=== PATIENT | female | born 1970 | race Caucasian/White ===

== ENCOUNTER 2017-02-18 18:20 | Emergency (ER) | payer SELFPAY ==
[~2017-02-18] VITALS: Ht 160 cm; Wt 72.6 kg
[2017-02-18 19:42] VITALS: BP 140/85
--- NOTE | 2017-02-18 20:17 | NUR ---
TO ER BED 7
--- NOTE | 2017-02-18 20:33 | NUR ---
46Y/F PATIENT PRESENTS TO ED WITH C/O N/V X 1 DAY . PT STATES ATE CHICKEN AND TEA YESTERDAY, THEN STARTED VOMITTING WITH ABDOMINAL PAIN, DENIES FEVER AND DIARRHEA . NO MEDICAL HX. ; SKIN IS PINK/WARM/DRY; AAOX4 WITH EVEN AND STEADY GAIT; LUNGS CLEAR BL; HR EVEN AND REGULAR; PT DENIES ANY FEVER, CP, SOB, OR COUGH AT THIS TIME; PATIENT STATES PAIN OF 8/10 AT THIS TIME; VSS; PATIENT POSITIONED FOR COMFORT; HOB ELEVATED; BEDRAILS UP X2; BED DOWN. ER MD MADE AWARE OF PT STATUS.
--- NOTE | 2017-02-18 20:45 | NUR ---
Patient being evaluated by physician at bedside.
[2017-02-18] MEDS ORDERED: ONDANSETRON 4 MG TAB PO ONE (20:50)
--- NOTE | 2017-02-18 21:35 | NUR ---
Patient discharged with v/s stable. Written and verbal after care instructions given and explained. Patient alert, oriented and verbalized understanding of instructions. Ambulatory with steady gait. All questions addressed prior to discharge. ID band removed. Patient advised to follow up with PMD. Rx of ZOFRAN 8 MG given. Patient educated on indication of medication including possible reaction and side effects. Opportunity to ask questions provided and answered.
[2017-02-18 21:43] VITALS: BP 140/85
== END 2017-02-18 21:35 | disposition home or self-care (01) ==
LOC: MED 18:20
DX: A08.4 Viral intestinal infection, unspecified (principal)
CPT/HCPCS: 99283; Q0162

== ENCOUNTER 2021-06-20 23:55 | Emergency (ER) | payer MEDICAID ==
[~2021-06-20] VITALS: Ht 160 cm; Wt 77.1 kg
[2021-06-21 00:15] VITALS: BP 102/70
--- NOTE | 2021-06-21 00:15 | NUR ---
TO BED AMBULATORY
--- NOTE | 2021-06-21 00:37 | NUR ---
PT BIB SELF FOR C/O 09/08 LUQ AND LLQ PAIN THAT RADIATES TO LEFT FLANK X 2 DAYS. TENDERNESS NOTED UPON PALPATION. DENIES S/SX OF UTI. PT REPORTS "IT HURTS WHEN I BREATHE TOO." LMP 06/03. LAST BM 06/20. DENIES VAGINAL OR URINARY BLEEDING. DENIES N/V/D, FEVER, CHILLS, CP OR SOB. MED HX: DENIES ALLERGIES: NKA
--- NOTE | 2021-06-21 00:40 | NUR ---
ERMD AT BEDSIDE.
[2021-06-21] MEDS ORDERED: MORPHINE SULFATE 2 MG/ML SYR IVP ONE (00:45)
[2021-06-21] MEDS ORDERED: ONDANSETRON 4 MG/2 ML VIAL IVP ONE (00:45)
[2021-06-21] MEDS ORDERED: NACL 0.9% 1,000 ML IV SCH (00:45)
--- NOTE | 2021-06-21 00:50 | NUR ---
PER ERMD, URINE PREG IN ER, NO LAB REQUIRED.
[2021-06-21 01:13] LABS: BASOPHILS % (AUTO) 0.2 % (0.0-2.0); EOSINOPHILS % (AUTO) 0.1 % (0.0-4.0); HEMATOCRIT 40.4 % (36-48); HEMOGLOBIN 13.9 g/dL (12.0-16.0); LYMPHOCYTES # (AUTO) 1.9 K/uL (2.5-16.5); MEAN CORPUSCULAR HEMOGLOBIN 34 pg (27-31); MEAN CORPUSCULAR HGB CONC 34 g/dL (33-37); MEAN CORPUSCULAR VOLUME 97.9 fL (80-94); MONOCYTES # (AUTO) 1.1 K/uL (0.8-1.0); MONOCYTES % (AUTO) 8.1 % (1.7-9.3); NEUTROPHILS # (AUTO) 10.5 K/uL (1.8-7.7); NEUTROPHILS % (AUTO) 77.6 % (42.2-75.2); PLATELET COUNT (AUTO) 255 K/uL (140-450); RED BLOOD CELL COUNT(AUTO) 4.13 MIL/uL (4.20-5.40); RED CELL DISTRIBUTION WIDTH 12.7 % (11.6-13.7); WHITE BLOOD COUNT (AUTO) 13.5 K/uL (4.8-10.8)
[2021-06-21 01:14] LABS: APPEARANCE,URINE CLEAR (CLEAR); BILIRUBIN,URINE NEGATIVE (NEGATIVE); BLOOD, URINE 2+ (NEGATIVE); COLOR,URINE YELLOW (YELLOW); LEUKOCYTE ESTERASE ,URINE NEGATIVE (NEGATIVE); NITRITE, URINE NEGATIVE (NEGATIVE); UGLUCOSE NEGATIVE (NEGATIVE)
[2021-06-21 01:21] LABS: RBC,URINE 0-5 /HPF (0-5); WBC,URINE 0-5 /HPF (0-5)
--- NOTE | 2021-06-21 01:21 | NUR ---
Patient appears to be resting comfortably in bed WITH EYES CLOSED. Vital Signs within normal limits. Respirations even and unlabored. PT REPORTS "THE PAIN WENT AWAY."
--- NOTE | 2021-06-21 01:28 | NUR ---
PT TAKEN TO CT VIA W.C.
[2021-06-21 01:30] LABS: ALBUMIN 4.2 g/dL (3.4-5.0); ANION GAP 13.1 (8-16); CARBON DIOXIDE 22.7 mmol/L (21-32); CREATININE 0.9 mg/dL (0.6-1.3); POTASSIUM 3.8 mmol/L (3.5-5.1); TOTAL BILIRUBIN 2.5 mg/dL (0.0-1.0)
[2021-06-21] MEDS ORDERED: NACL 0.9% 1,000 ML IV ONE ×2 (02:05)
[2021-06-21] MEDS ORDERED: cefTRIAXone 1,000 MG VIAL ONE (02:10)
--- NOTE | 2021-06-21 02:15 | NUR ---
LAB AT BEDSIDE.
[2021-06-21] MEDS ORDERED: KETOROLAC 30 MG/ML VIAL IVP ONE (02:40)
--- NOTE | 2021-06-21 03:05 | NUR ---
PT AMBULATED TO RESTROOM AND BACK TO BED WITH STEADY GAIT.
--- NOTE | 2021-06-21 03:47 | NUR ---
ERMD AT BEDSIDE.
--- NOTE | 2021-06-21 03:59 | NUR ---
ERMD VERBAL ORDER RECEIVED FOR PO CHALLENGE. ORDER PLACED.
[2021-06-21] MEDS ORDERED: ONDA-24 SL (04:05)
[2021-06-21] MEDS ORDERED: AMOX-1000 PO (04:05)
[2021-06-21] MEDS ORDERED: HYDR-5080 PO (04:05)
[2021-06-21] MEDS ORDERED: MORPHINE SULFATE 4 MG/ML SYR IVP ONE (04:10)
[2021-06-21] MEDS ORDERED: AMOXIL/CLAVULANATE 875/125 MG 1 TAB PO ONE (04:10)
--- NOTE | 2021-06-21 04:10 | NUR ---
PT TOLERATED FLUIDS WELL WITHOUT N/V OR ABDOMINAL DISCOMFORT. ERMD MADE AWARE.
[2021-06-21 04:29] VITALS: BP 106/58
--- NOTE | 2021-06-21 04:29 | NUR ---
Patient discharged with v/s stable. Written and verbal after care instructions given and explained. Patient alert, oriented and verbalized understanding of instructions. Ambulatory with steady gait. All questions addressed prior to discharge. ID band removed. Patient advised to follow up with PMD. Rx of AUGMENTIN, NORCO AND ZOFRAN ODT given. Patient educated on indication of medication including possible reaction and side effects. Opportunity to ask questions provided and answered.
== END 2021-06-21 04:29 | disposition home or self-care (01) ==
LOC: MED 23:55
DX: R65.20 Severe sepsis without septic shock (principal); K57.92 Diverticulitis of intestine, part unspecified, without perforation or abscess without bleeding; N39.0 Urinary tract infection, site not specified; K80.20 Calculus of gallbladder without cholecystitis without obstruction
CPT/HCPCS: 36415; 74176; 80053; 81001; 81025; 83605; 85025; 87040; 87086; 96361; 96365; 96375; 96376; 99291; J0696; J1885; J2270; J2405; J7030

== ENCOUNTER 2022-12-15 19:59 | Inpatient (IN) | payer MEDICAID ==
[~2022-12-15] VITALS: Ht 157.5 cm; Wt 65.8 kg
[~2022-12-15 19:59] MED LIST: AMOX-1000 PO; HYDR-5080 PO; ONDA-188 SL
[2022-12-15 20:11] VITALS: BP 129/63
[2022-12-15] MEDS ORDERED: MORPHINE SULFATE 4 MG/ML SYR IVP ONE ×2 (21:00→23:20)
[2022-12-15] MEDS ORDERED: ONDANSETRON 4 MG/2 ML VIAL IVP ONE (21:00)
[2022-12-15] MEDS ORDERED: NACL 0.9% 1,000 ML IV SCH (21:00)
[2022-12-15 21:13] LABS: BASOPHILS % (AUTO) 0.5 % (0.0-2.0); EOSINOPHILS # (AUTO) 0.2 K/uL (0-0.4); EOSINOPHILS % (AUTO) 2.4 % (0.0-4.0); HEMATOCRIT 38.7 % (36-48); HEMOGLOBIN 13.5 g/dL (12.0-16.0); LYMPHOCYTES # (AUTO) 2.4 K/uL (2.5-16.5); LYMPHOCYTES % (AUTO) 27.1 % (20.5-51.1); MEAN CORPUSCULAR HEMOGLOBIN 33 pg (27-31); MEAN CORPUSCULAR HGB CONC 35 g/dL (33-37); MEAN CORPUSCULAR VOLUME 92.9 fL (80-94); MONOCYTES # (AUTO) 0.8 K/uL (0.8-1.0); MONOCYTES % (AUTO) 9.1 % (1.7-9.3); NEUTROPHILS # (AUTO) 5.3 K/uL (1.8-7.7); NEUTROPHILS % (AUTO) 60.9 % (42.2-75.2); PLATELET COUNT (AUTO) 375 K/uL (140-450); RED BLOOD CELL COUNT(AUTO) 4.16 MIL/uL (4.20-5.40); RED CELL DISTRIBUTION WIDTH 13.1 % (11.6-13.7); WHITE BLOOD COUNT (AUTO) 8.8 K/uL (4.8-10.8)
[2022-12-15 21:30] LABS: ALBUMIN 3.6 g/dL (3.4-5.0); ANION GAP 12.7 (8-16); CARBON DIOXIDE 28.8 mmol/L (21-32); CREATININE 0.9 mg/dL (0.6-1.3); POTASSIUM 3.5 mmol/L (3.5-5.1); TOTAL BILIRUBIN 0.8 mg/dL (0.0-1.0)
[2022-12-15 21:54] LABS: APPEARANCE,URINE CLEAR (CLEAR); BILIRUBIN,URINE NEGATIVE (NEGATIVE); BLOOD, URINE 1+ (NEGATIVE); COLOR,URINE YELLOW (YELLOW); LEUKOCYTE ESTERASE ,URINE NEGATIVE (NEGATIVE); NITRITE, URINE NEGATIVE (NEGATIVE); UGLUCOSE NEGATIVE (NEGATIVE)
[2022-12-15 22:04] LABS: WBC,URINE 0-5 /HPF (0-5)
[2022-12-15 22:05] LABS: OTHER CASTS, URINE None Seen /LPF (None Seen)
[2022-12-15] MEDS ORDERED: metroNIDAZOLE 500 MG/NS PREMIX 100 ML IV ONE (23:35)
[2022-12-15] MEDS ORDERED: LEVOFLOXACIN 500 MG/D5W PREMIX 100 ML IV ONE (23:35)
[2022-12-16] MEDS: LEVOFLOXACIN 500 MG/D5W PREMIX 100 ML IV SCH (10:00)
[2022-12-16] MEDS ORDERED: HYDROcodone/APAP 7.5/325 MG 1 TAB PO PRN (12:50)
[2022-12-16] MEDS ORDERED: MAG SULF 2000 MG/WATER PREMIX 50 ML IV PRN (12:50)
[2022-12-16] MEDS ORDERED: ONDANSETRON 4 MG/2 ML VIAL IVP PRN (12:50)
[2022-12-16] MEDS ORDERED: POTASSIUM CHLORIDE 10 MEQ TABER PO PRN (12:50)
[2022-12-16] MEDS ORDERED: ACETAMINOPHEN 325 MG TAB PO PRN (12:50)
[2022-12-16 13:26] LABS: BASOPHILS % (AUTO) 0.3 % (0.0-2.0); EOSINOPHILS # (AUTO) 0.1 K/uL (0-0.4); EOSINOPHILS % (AUTO) 1.1 % (0.0-4.0); HEMATOCRIT 38.1 % (36-48); HEMOGLOBIN 13.6 g/dL (12.0-16.0); LYMPHOCYTES % (AUTO) 22.3 % (20.5-51.1); MEAN CORPUSCULAR HEMOGLOBIN 33 pg (27-31); MEAN CORPUSCULAR HGB CONC 36 g/dL (33-37); MEAN CORPUSCULAR VOLUME 93.1 fL (80-94); MONOCYTES # (AUTO) 0.7 K/uL (0.8-1.0); MONOCYTES % (AUTO) 7.5 % (1.7-9.3); NEUTROPHILS # (AUTO) 6.1 K/uL (1.8-7.7); NEUTROPHILS % (AUTO) 68.8 % (42.2-75.2); PLATELET COUNT (AUTO) 377 K/uL (140-450); RED BLOOD CELL COUNT(AUTO) 4.09 MIL/uL (4.20-5.40); RED CELL DISTRIBUTION WIDTH 12.5 % (11.6-13.7); WHITE BLOOD COUNT (AUTO) 8.9 K/uL (4.8-10.8)
[2022-12-16] MEDS: NACL 0.9% 1,000 ML IV SCH ×2 (13:28→21:34)
[2022-12-16] MEDS: metroNIDAZOLE 500 MG/NS PREMIX 100 ML IV SCH ×2 (13:30→21:45)
[2022-12-16 13:35] LABS: ANION GAP 8.1 (8-16); CARBON DIOXIDE 25.4 mmol/L (21-32); CREATININE 0.7 mg/dL (0.6-1.3); POTASSIUM 3.5 mmol/L (3.5-5.1)
[2022-12-16 13:48] LABS: AMYLASE 37 U/L (25-115); HDL CHOLESTEROL 53 mg/dL (40-60); LIPASE 93 U/L (73-393); MAGNESIUM 1.8 mg/dL (1.8-2.4); PHOSPHORUS 2.3 mg/dL (2.5-4.9); THYROID STIMULATING HORMONE 1.22 uIU/mL (0.34-3.74); TRIGLYCERIDES 100 mg/dL (30-150)
[2022-12-16 13:57] LABS: CHOL/HDL RATIO 3.7 (1-4.5); LDL (CALC) 121 mg/dL (60-100)
[2022-12-16] MEDS: DOCUSATE SODIUM 100 MG GELCAP PO SCH (21:45)
[2022-12-17 00:25] VITALS: BP 138/85
[2022-12-17 04:00] VITALS: BP 116/71
[2022-12-17] MEDS: NACL 0.9% 1,000 ML IV SCH ×3 (04:30→22:10)
[2022-12-17] MEDS: metroNIDAZOLE 500 MG/NS PREMIX 100 ML IV SCH ×3 (04:35→21:24)
[2022-12-17 07:27] LABS: BASOPHILS % (AUTO) 0.4 % (0.0-2.0); EOSINOPHILS # (AUTO) 0.1 K/uL (0-0.4); EOSINOPHILS % (AUTO) 1.8 % (0.0-4.0); HEMATOCRIT 38.7 % (36-48); HEMOGLOBIN 13.2 g/dL (12.0-16.0); LYMPHOCYTES # (AUTO) 1.9 K/uL (2.5-16.5); LYMPHOCYTES % (AUTO) 26.3 % (20.5-51.1); MEAN CORPUSCULAR HEMOGLOBIN 33 pg (27-31); MEAN CORPUSCULAR HGB CONC 34 g/dL (33-37); MEAN CORPUSCULAR VOLUME 95.9 fL (80-94); MONOCYTES # (AUTO) 0.6 K/uL (0.8-1.0); MONOCYTES % (AUTO) 8.6 % (1.7-9.3); NEUTROPHILS # (AUTO) 4.5 K/uL (1.8-7.7); NEUTROPHILS % (AUTO) 62.9 % (42.2-75.2); PLATELET COUNT (AUTO) 370 K/uL (140-450); RED BLOOD CELL COUNT(AUTO) 4.03 MIL/uL (4.20-5.40); RED CELL DISTRIBUTION WIDTH 12.8 % (11.6-13.7); WHITE BLOOD COUNT (AUTO) 7.1 K/uL (4.8-10.8)
[2022-12-17 08:00] VITALS: BP_SYST 114; BP_SYST 124; BP_DIAS 59; BP_DIAS 76
[2022-12-17] MEDS ORDERED: PANTOPRAZOLE 40 MG INJ VIAL IVP SCH (09:00)
[2022-12-17] MEDS: DOCUSATE SODIUM 100 MG GELCAP PO SCH ×2 (09:04→22:09)
[2022-12-17 09:17] LABS: ANION GAP 11.8 (8-16); CARBON DIOXIDE 24.9 mmol/L (21-32); CREATININE 0.7 mg/dL (0.6-1.3); POTASSIUM 3.7 mmol/L (3.5-5.1)
[2022-12-17 09:35] LABS: MAGNESIUM 1.8 mg/dL (1.8-2.4); PHOSPHORUS 2.2 mg/dL (2.5-4.9)
[2022-12-17] MEDS: LEVOFLOXACIN 500 MG/D5W PREMIX 100 ML IV SCH (09:47)
[2022-12-17] MEDS ORDERED: POTASSIUM PHOSPHATE 15 MM in NACL 0.9% 250 ML IV SCH (15:00)
[2022-12-17 16:00] VITALS: BP 122/77
[2022-12-17 20:00] VITALS: BP 122/82
[2022-12-18 04:00] VITALS: BP 123/83
[2022-12-18] MEDS: metroNIDAZOLE 500 MG/NS PREMIX 100 ML IV SCH (05:47)
[2022-12-18] MEDS: NACL 0.9% 1,000 ML IV SCH (06:30)
[2022-12-18 07:14] LABS: BASOPHILS % (AUTO) 0.5 % (0.0-2.0); EOSINOPHILS # (AUTO) 0.1 K/uL (0-0.4); EOSINOPHILS % (AUTO) 2.5 % (0.0-4.0); HEMATOCRIT 40.1 % (36-48); HEMOGLOBIN 13.8 g/dL (12.0-16.0); LYMPHOCYTES # (AUTO) 1.7 K/uL (2.5-16.5); MEAN CORPUSCULAR HEMOGLOBIN 33 pg (27-31); MEAN CORPUSCULAR HGB CONC 35 g/dL (33-37); MEAN CORPUSCULAR VOLUME 94.7 fL (80-94); MONOCYTES # (AUTO) 0.4 K/uL (0.8-1.0); MONOCYTES % (AUTO) 7.7 % (1.7-9.3); NEUTROPHILS # (AUTO) 3.4 K/uL (1.8-7.7); NEUTROPHILS % (AUTO) 59.3 % (42.2-75.2); PLATELET COUNT (AUTO) 405 K/uL (140-450); RED BLOOD CELL COUNT(AUTO) 4.23 MIL/uL (4.20-5.40); RED CELL DISTRIBUTION WIDTH 12.9 % (11.6-13.7); WHITE BLOOD COUNT (AUTO) 5.7 K/uL (4.8-10.8)
[2022-12-18 08:00] VITALS: BP 141/90
[2022-12-18 08:02] LABS: ANION GAP 11.4 (8-16); CREATININE 0.8 mg/dL (0.6-1.3); POTASSIUM 4.4 mmol/L (3.5-5.1)
[2022-12-18 08:05] LABS: MAGNESIUM 1.8 mg/dL (1.8-2.4); PHOSPHORUS 3.3 mg/dL (2.5-4.9)
[2022-12-18] MEDS ORDERED: LEVO-481 PO (09:18)
[2022-12-18] MEDS: DOCUSATE SODIUM 100 MG GELCAP PO SCH (09:59)
[2022-12-18 10:16] VITALS: BP 141/90
== END 2022-12-18 11:00 | disposition home or self-care (01) | DRG 244 ==
LOC: MED 19:59 → MTU 12-16 03:43
DX: K57.32 Diverticulitis of large intestine without perforation or abscess without bleeding (principal); K85.90 Acute pancreatitis without necrosis or infection, unspecified; E86.0 Dehydration; Z98.51 Tubal ligation status; K52.9 Noninfective gastroenteritis and colitis, unspecified; K29.70 Gastritis, unspecified, without bleeding; K80.20 Calculus of gallbladder without cholecystitis without obstruction; Z20.822 Contact with and (suspected) exposure to COVID-19; R73.9 Hyperglycemia, unspecified
CPT/HCPCS: 36415; 71045; 80048; 80053; 81001; 82150; 83036; 83690; 83735; 83880; 84100; 84439; 84443; 84484; 85025; 85610; 85730; 87040; 87081; 96361; 96365; 96368; 96375; 96376; 99285; C9113; J1644; J1956; J2270; J2405; J3490; J7030; Q0092; Q9967